=== PATIENT | female | born 1945 | race Caucasian/White ===

== ENCOUNTER 2017-02-22 21:24 | Observation (INO) | payer MEDICARE, OTHER ==
--- NOTE | ~2017-02-22 | HP ---
History And Physical [address] [place]. [address] NAME: HÉCTOR SPICER : 47 STATUS : ADM Moises PAT#: [id number] AGE: 71 ADM/REG DATE : 02/22/17 MR#: [id number] REPORT SERV DATE: 02/23/17 DICTATED BY: NANDO GUO DATE: 02/23/17 REPORT STATUS : Draft TRANSCRIBED BY: MODOmar DATE: 02/23/17 DATE OF ADMISSION: 02/22/2017 CHIEF COMPLAINT: Chest pain. HISTORY OF PRESENT ILLNESS: This is a pleasant 71-year-old white female with cardiac risk factors of obesity, strong family history of premature CAD, [place] and heart failure, along with longstanding hypertension. She reports occasional sharp chest pains at rest, but no exertional component. She then developed at approximately 8 p.m. yesterday evening while she was resting a burning chest pain. She reports this started on the right side of her back and radiated to her anterior precordium and then eventually up to bilateral anterior neck and throat. She reports this is an uncomfortable burning feeling. There were no associated symptoms. No exertional component or emotional component to the chest pain. She rates it as 8/10 on the numeric pain scale at its most intense. She did take aspirin and nitroglycerin with EMS and reports symptoms resolved en route to the hospital, but she is unsure if it is secondary to the medications. She has had no symptoms since then. She denies any shortness of breath, palpitations, syncope, near syncope, nausea, diaphoresis or lower extremity edema, except at the end of the day when she is standing. No recent illness. She does ascribe to chronic fatigue and severe arthritis that is somewhat debilitating and prevents exercise programs. PAST MEDICAL HISTORY: 1. Hypertension (longstanding). 2. Obstructive sleep apnea, compliant with CPAP. 3. Obesity. 4. Anxiety. 5. Depression. 6. Macular degeneration. 7. Severe arthritis. 8. Cataracts. 9. GI polyps. 10.Chronic joint pain, on [place], gabapentin and Celebrex. PAST SURGICAL HISTORY: 1. Hysterectomy. 2. Cholecystectomy. 3. Left total knee replacement, 12/21/2014, by Dr. Villavicencio. SOCIAL HISTORY: . Part-time hairdresser three days per week. Cares for her disabled daughter full-time (daughter has mental retardation and cerebral palsy). She does not lift her daughter, but is active with her daily care and has no exertional symptoms. She denies any formal exercise program secondary to severe arthritis. Again with daily activities including hairdressing, etc., she does not have any shortness of breath or chest pain. No tobacco, alcohol, or illicit drug use. FAMILY HISTORY: Positive for premature CAD with father, first myocardial infarction at the [facility] [address] [address] NAME: HÉCTOR SPICER : 47 STATUS : ADM Moises PAT#: [id number] AGE: 71 ADM/REG DATE : 02/22/17 MR#: [id number] REPORT SERV DATE: 02/23/17 DICTATED BY: NANDO GUO DATE: 02/23/17 REPORT STATUS : Draft TRANSCRIBED BY: NOAH DATE: 02/23/17 age of 56 and of a subsequent myocardial infarction at the age of 61. A brother of congestive heart failure at the age of 52 after first myocardial infarction in his 40s, he did also have an aortic aneurysm that was successfully repaired. Mother with heart and lung disease. First brother with lung cancer and congestive heart failure. REVIEW OF SYSTEMS: The patient reports she has not had a cardiac evaluation in approximately 20 years. As above per HPI, all other systems reviewed and negative. ALLERGIES: NO KNOWN ALLERGIES. HOME MEDICATIONS: List reviewed and is as follows: 1. Celebrex 200 mg p.o. daily. 2. Neurontin 300 mg p.o. at bedtime. 3. [place] 10/325 mg tablet one tablet p.o. three times per day as needed for pain. 4. Lisinopril 10 mg p.o. daily. 5. Omeprazole 20 mg p.o. daily. 6. Maxzide 37.5/25 one tablet p.o. daily. 7. Effexor 75 mg p.o. twice per day. 8. Ambien 5 mg p.o. at bedtime. PHYSICAL EXAMINATION: VITAL SIGNS: Oxygen saturations 94% on room air, previously on 2 L; weight 92.73 kg, height 157.48 cm, body mass index 37.4; temperature 98.7; pulse 62; respiratory rate 16; blood pressure 126/58, initial blood pressure was mildly elevated at 149/66. GENERAL: Well developed, well nourished. In no apparent distress. HEENT: Head normocephalic. No xanthelasma. Sclera clear, anicteric. Moist mucous membranes without pallor. No lymphadenopathy. No deficits noted. NECK: Trachea midline. Supple. No thyromegaly, JVD, or bruits. RESPIRATORY: Unlabored respirations. Breath sounds clear bilaterally to posterior auscultation. No wheezes, rhonchi or crackles. CARDIOVASCULAR: Regular rate and rhythm. No murmur, rub, or gallop appreciated. No chest wall tenderness to palpation. ABDOMEN: Soft, nontender, and nondistended. Active bowel sounds auscultated x4 quadrants. No organomegaly and no masses. No aortic bruit. EXTREMITIES: DP/PT and radial pulses 2+ bilaterally. No clubbing, cyanosis, or edema. Varicosities noted throughout lower extremities. SKIN: Warm, dry, intact. No rash. Normal turgor. MUSCULOSKELETAL: Moves all extremities in bed without difficulty. NEURO/PSYCH: Alert and oriented x3 with no acute distress. Affect appropriate to current situation. LABORATORY DATA: 1. BMP: Sodium 141, potassium 3.7, creatinine 0.93, glucose 94, calcium 8.6, magnesium 2.2. 2. CBC: White blood cell count 5.1, hemoglobin 13.4, hematocrit 39, platelets slightly low at 134. Troponin less than 0.02 x3. History And Physical [address] [address] NAME: HÉCTOR SPICER : 47 STATUS : ADM Moises PAT#: [id number] AGE: 71 ADM/REG DATE : 02/22/17 MR#: [id number] REPORT SERV DATE: 02/23/17 DICTATED BY: NANDO GUO DATE: 02/23/17 REPORT STATUS : Draft TRANSCRIBED BY: NOAH DATE: 02/23/17 STUDIES: 1. Chest x-ray, personally interpreted, PA view, no acute processes. Await official read. 2. EKGs, personally interpreted x2, normal sinus rhythm with a left axis deviation. No ischemia. Question voltage criteria consistent with LVH. 3. Telemetry, normal sinus rhythm. ASSESSMENT AND PLAN: 1. Precordial chest pain. There were three negative troponins. EKG with no ischemia. She did have voltage criterion for possible left ventricular hypertrophy. Cardiac risk factors include the age, family history for premature coronary artery disease/myocardial infarction, obesity, hypertension. We will risk stratify with a nuclear stress test tomorrow. If it is low risk with no ischemia, RN is to discharge the patient to home with followup with her primary care provider in one week. I will attempt to reduce her cardiac risk factors. I have advised her to lose weight; a low- sodium, heart healthy diet; monitoring blood pressure by checking blood pressure daily, recording and bringing to primary care provider to monitor blood pressure and initiate any blood pressure medication changes if needed. I have encouraged her to lose weight. 2. Hypertension. I will continue her home medications at this time and please see plan above. 3. Obesity. Weight loss encouraged. She reports she is unable to do many exercises because of severe arthritis. I did encourage her to talk with the primary care provider about alternate exercises for arthritis. 4. Family history of premature coronary artery disease. This is noted. 5. Arthritis. The patient is on Celebrex. She is to discuss alternative medications and risks and benefits of Celebrex for cardiovascular risk given strong family history of coronary artery disease. She will follow up with the primary care provider in one to two weeks. Further recommendations are forthcoming for rounding patch setter for [facility], Dr. Ashu Morales. KL/MODL Nando Guo NP / [id number] CC: Jacquelyn Burciaga, MSN, COMPUTER HARDWARE DESIGNER-BC MEENA Soria M.D.
[~2017-02-22 21:24] MED LIST: AMB10 PO; C5 PO; EFFEX75 PO; MAX25 PO; NEUR300 PO; NORCO1 TAB PO; PCET PO; PRIN10 PO
[2017-02-22 21:25] LABS: BASOPHILS 0.2 %; BASOPHILS ABSOLUTE 0.01 10/3/uL (0.0-0.16); EOSINOPHILS 1.8 %; EOSINOPHILS ABSOLUTE 0.09 10/3/uL (0.0-0.53); ER CBC TAT 0 Hrs 03 Mins; IMMATURE GRANULOCYTES 0.2 %; IMMATURE GRANULOCYTES ABSOLUTE 0.01 10/3/uL (0.0-0.11); LYMPHOCYTES 21.7 %; LYMPHOCYTES ABSOLUTE 1.11 10/3/uL (0.67-4.30); MEAN CORPUS HGB CONC 34.4 g/dL (32.0-36.0); MEAN CORPUSCULAR HEMOGLOB 30.9 pg (26.0-34.0); MEAN CORPUSCULAR VOLUME 89.9 fL (80-100); MEAN PLATELET VOLUME 11.4 fL (9.2-13.0); MONOCYTES ABSOLUTE 0.41 10/3/uL (0.21-1.20); NEUTROPHILS 68.1 %; NEUTROPHILS ABSOLUTE 3.48 10/3/uL (2.02-8.40); PLATELET COUNT 134 10/3/uL (150-400); RBC DISTRIBUTION WIDTH 13.5 % (12.0-16.0); RED CELL COUNT 4.34 10/6/uL (4.0-5.6); WHITE BLOOD CELLS 5.1 10/3/uL (4.5-10.5)
[2017-02-22 21:26] LABS: HEMOGLOBIN 13.4 g/dL (12.0-16.0); MANUAL DIFF NO %
[2017-02-22 21:34] LABS: INTERNATIONAL NORMAL RATI 1.1 UNITS (-); PARTIAL THROMBO TIME 28.7 SEC (22.5-37.2); PROTIME (NOT ORD) 13.7 SEC (12.0-14.5)
[2017-02-22 21:42] LABS: CALCIUM, SERUM 8.6 MG/DL (8.5-10.4); CHEST PAIN PROFILE TAT 0 Hrs 20 Mins; CHLORIDE, SERUM 105 MMOL/L (96-112); CO2 (CARBON DIOXIDE) 32 MMOL/L (24-34); CREATININE 0.93 MG/DL (0.55-1.02); GFR AFRICAN AMERICAN 72 ML/MIN (>=60); GFR NON AFRICAN AMERICAN 62 ML/MIN (>=60); GLUCOSE, SERUM 94 MG/DL (60-99); POTASSIUM, SERUM 3.7 MMOL/L (3.5-5.3); SODIUM, SERUM 141 MMOL/L (135-148); TROPONIN I <0.02 NG/ML (<0.05)
[2017-02-22 21:43] LABS: BUN (BLOOD UREA NITROGEN) 24 MG/DL (6-23)
[2017-02-22] MEDS ORDERED: AMB5 PO (22:03)
[2017-02-22] MEDS ORDERED: NEUR300 PO (22:03)
[2017-02-22] MEDS ORDERED: PRIN10 PO (22:03)
[2017-02-22] MEDS ORDERED: NORCO1 TAB PO (22:04)
[2017-02-22] MEDS ORDERED: EFFEX75 PO (22:04)
[2017-02-22] MEDS ORDERED: CELEBREX2 PO (22:04)
[2017-02-22] MEDS ORDERED: PRILO PO (22:04)
[2017-02-22] MEDS ORDERED: MAX25 PO (22:04)
[2017-02-24 05:10] LABS: CHLORIDE, SERUM 105 MMOL/L (96-112); CO2 (CARBON DIOXIDE) 30 MMOL/L (24-34); GFR AFRICAN AMERICAN 87 ML/MIN (>=60); GFR NON AFRICAN AMERICAN 75 ML/MIN (>=60); GLUCOSE, SERUM 102 MG/DL (60-99); POTASSIUM, SERUM 3.5 MMOL/L (3.5-5.3); SODIUM, SERUM 142 MMOL/L (135-148)
[2017-02-24 05:12] LABS: BUN (BLOOD UREA NITROGEN) 20 MG/DL (6-23)
== END 2017-02-24 13:28 | disposition home or self-care (01) ==
LOC: ER 21:24 → CDU1 22:29 → CDU2 23:16
PROVIDERS: Clinical Nurse Specialist; Emergency Medicine
DX: R07.2 Precordial pain (principal); G47.33 Obstructive sleep apnea (adult) (pediatric); I10 Essential (primary) hypertension; F41.9 Anxiety disorder, unspecified; F32.9 Major depressive disorder, single episode, unspecified; M19.90 Unspecified osteoarthritis, unspecified site; Z86.010 Personal history of colon polyps; Z99.81 Dependence on supplemental oxygen; Z90.710 Acquired absence of both cervix and uterus; Z90.49 Acquired absence of other specified parts of digestive tract; Z98.890 Other specified postprocedural states; Z79.899 Other long term (current) drug therapy
CPT/HCPCS: 71010; 78452; 80048; 83735; 84484; 85025; 85610; 85730; 93005; 93017; 99285; A9270-GY; A9502; G0378